=== PATIENT | male | born 1985 | race Caucasian/White ===

== ENCOUNTER 2017-02-04 00:22 | Emergency (ER) | payer BC, OTHER ==
[2017-02-04] MEDS ORDERED: Morphine INJ* 4 MG/ML 1 ML CARPUJECT IM ONE (01:53)
[2017-02-04] MEDS ORDERED: Tetan/Diph/Pertus SYR(Tdap)* 0.5 ML SYR(BOOSTRIX) use SYR IM ONE (01:53)
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
[2017-02-04] MEDS ORDERED: Morphine INJ* 2 MG/ML 1 ML CARPUJECT IV ONE (04:23)
[2017-02-04 04:50] LABS: Hematocrit 44 % (42-52); Hemoglobin 14.8 g/dl (14.0-18.0); Mean Corpuscular HGB Conc 34 g/dl (31-36); Mean Corpuscular Hemoglobin 32 pg (27-31); Mean Corpuscular Volume 94 fL (80-94); Mean Platelet Volume 9 um3 (7.4-10.4); Red Blood Count 4.67 10^6/ul (4.0-5.4); Red Cell Distribution Width 14 % (10.5-15); White Blood Count 10.4 10^3/ul (3.5-10.8)
[2017-02-04 05:01] VITALS: BP 128/80
[2017-02-04 05:05] LABS: Albumin 4.5 g/dL (3.2-5.2); BUN/Creatinine Ratio 17.1 (8-20); Calcium 8.6 mg/dL (8.6-10.3); EGFR African American 155.9 (>60); EGFR Non-African American 121.3 (>60); Globulin 2.5 g/dL (2-4); Potassium 3.8 mmol/L (3.5-5.0); Total Bilirubin 0.4 mg/dL (0.2-1.0)
--- NOTE | 2017-02-04 10:09 | RAD ---
Indication: Facial injury. CT of the facial bones was obtained in the axial plane. Coronal and sagittal constructed images were obtained. The mandible itself demonstrates no fracture. The temporomandibular joints are unremarkable. There is soft tissue laceration superficial to the mandible with small foci of air and calcified debris. Moderate-sized defect is noted in the skin. No fracture is identified. There is fracture of the right maxillary sinus with fracture of the anterior, lateral and medial wall with air-fluid level in the right maxillary sinus. No fracture is noted. The left orbit is otherwise unremarkable. Mucosal thickening is noted in both maxillary sinuses. There is fracture of the right lateral and medial pterygoid plate. The left pterygoid plate is intact. The visualized cervical spine is otherwise unremarkable. The orbits are grossly intact. The right alveolar ridge of the region of second bicuspid is also fracture especially in the posterior cortex. Multiple dental caries are also noted. IMPRESSION: Soft tissue defect superficial to the mandible with laceration and high attenuation foci at the level of the right chin. Fractures of the right maxillary sinus anterior and laterally and extending to the medial and lateral pterygoid on the right. There is likely a fracture of the right alveolar process adjacent to the second bicuspid on the right maxilla.
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
== END 2017-02-04 04:45 ==
LOC: ED 00:22
DX: S09.90XA Unspecified injury of head, initial encounter (principal); V86.59XA Driver of other special all-terrain or other off-road motor vehicle injured in nontraffic accident, initial encounter; Y93.I9 Activity, other involving external motion; Y92.9 Unspecified place or not applicable
CPT/HCPCS: 36415; 70450; 70486; 72125; 80053; 80320; 85025; 90471; 90715; 96374; 99283; G0480; J2270